=== PATIENT | female | born 1995 | race Caucasian/White ===

== ENCOUNTER 2024-10-23 10:31 | Emergency (ER) | payer OTHER ==
[~2024-10-23] VITALS: Ht 154.9 cm; Wt 95.3 kg
[2024-10-23 10:54] VITALS: BP 112/74; TEMP 98.5
[2024-10-23] MEDS ORDERED: diphenhydrAMINE HCL 25 MG CAPSULE ONE (11:40)
[2024-10-23] MEDS: diphenhydrAMINE HCL 25 MG CAPSULE PO ONE (11:44)
[2024-10-23 12:27] LABS: PREGNANCY TEST URINE QUAL NEGATIVE (NEGATIVE)
[2024-10-23] MEDS ORDERED: PRED50TA PO (13:00)
[2024-10-23] MEDS ORDERED: predniSONE 20 MG TABLET ONE (13:08)
[2024-10-23] MEDS: predniSONE 50 MG TABLET PO ONE (13:14)
[2024-10-23 13:16] VITALS: O2SAT 99
== END 2024-10-23 13:20 | disposition home or self-care (01) ==
LOC: ER 10:49
DX: R21 Rash and other nonspecific skin eruption (principal); L29.89 Other pruritus
CPT/HCPCS: 99283; 84703; Q0163; J7512